=== PATIENT | female | born 1975 | race Asian ===

== ENCOUNTER 2024-07-04 16:07 | Emergency (ER) | payer BC, SELFPAY ==
[2024-07-04 16:08] VITALS: BMI 24.4
[2024-07-04 16:42] VITALS: BP 159/95; PULSE 71; RESP 18; TEMP 36.6; O2SAT 99
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
== END 2024-07-04 19:12 | disposition home or self-care (01) ==
PROVIDERS: Emergency Provider Emergency Medicine; PCP Internal Medicine
DX: S10.93XA Contusion of unspecified part of neck, initial encounter (principal); S20.229A Contusion of unspecified back wall of thorax, initial encounter; S20.219A Contusion of unspecified front wall of thorax, initial encounter; V43.52XA Car driver injured in collision with other type car in traffic accident, initial encounter; R51.9 Headache, unspecified
CPT/HCPCS: 70450; 71046; 72125; 99284